=== PATIENT | female | born 1980 | race Caucasian/White ===

== ENCOUNTER → 2024-12-09 | Outpatient (CLI) | payer MEDICAID, SELFPAY ==
--- NOTE | 2024-12-09 14:15 | XR_ITS ---
Examination: Screening digital mammography, bilateral Computer aided detection 3-D breast Tomosynthesis, bilateral Date and time of exam: December 09, 2024 1434 hours Indication: Screening Technique: Nonmagnified MLO, CC views of the breasts to been obtained, reconstructed from 3-D Tomosynthesis images. R2 computer aided detection program utilized for evaluation of suspicious masses and/or abnormal calcifications. 3-D Tomosynthesis images obtained. Findings: The breasts are heterogeneously dense, which may obscure small masses 11 mm focal asymmetry 12:00 position right breast mid depth Grouped microcalcifications 6:00 position right breast Impression: BI-RADS Category 0: Incomplete: Need additional imaging evaluation 11 mm focal asymmetry 12:00 position right breast, recommend follow-up spot tomographic views of this asymmetry Recommend magnification spot compression films of microcalcifications 6:00 position right breast Recommend bilateral breast sonography to complete the workup
== END | disposition home or self-care (01) ==
LOC: CDIM 14:21
PROVIDERS: Referring Provider Physician Assistant; Visit Provider Physician Assistant
DX: Z12.31 Encounter for screening mammogram for malignant neoplasm of breast (principal); N64.89 Other specified disorders of breast; R92.0 Mammographic microcalcification found on diagnostic imaging of breast
CPT/HCPCS: 77063; 77067

== ENCOUNTER → 2025-07-08 | Outpatient (CLI) | payer MEDICAID, SELFPAY ==
--- NOTE | 2025-07-08 13:30 | XR_ITS ---
Examination: Breast ultrasound complete, bilateral Date and time of exam: July 08, 2025, 1402 hours INDICATIONS: Mammogram December 10, 1999 2511 mm focal asymmetry 12 o'clock position right breast mid depth, grouped microcalcifications 6 o'clock position right breast. Technique: Real-time grayscale ultrasonographic imaging bilateral breasts, including all 4 quadrants as well as nipple retroareolar and axillary regions. Findings: Sonographic images right breast 6:00 cyst 5 x 7 mm 11:00 cyst 4 x 3 mm No solid nodules Sonographic images left breast No cystic or solid masses Bilateral dilated ducts in the retroareolar regions IMPRESSION: BI-RADS Category 2: Benign findings
--- NOTE | 2025-07-08 14:30 | XR_ITS ---
Examination: Diagnostic digital mammography, unilateral, right Computer aided detection 3-D breast Tomosynthesis, unilateral Date and time of exam: July 08, 2025, 1418 hours INDICATIONS: Mammogram December 09, 2024 11 mm focal asymmetry 12 o'clock position right breast, grouped microcalcifications 6 o'clock position right breast Technique: Nonmagnified MLO, CC views of the right breast have been obtained, reconstructed from 3-D Tomosynthesis images. R2 computer aided detection program utilized for evaluation of suspicious masses and/or abnormal calcifications. 3-D Tomosynthesis images obtained. Findings: The breast is heterogeneously dense, which may obscure small masses Suspicious grouped microcalcifications 6 o'clock position right breast are confirmed No suspicious nodule is noted on the spot compression views Impression: BI-RADS category 4: Suspicious for malignancy Suspicious microcalcifications are confirmed 6 o'clock position right breast, biopsy is needed to exclude breast carcinoma, these calcifications are amenable to stereotactic breast biopsy for diagnosis
== END | disposition home or self-care (01) ==
PROVIDERS: PCP Physician Assistant; Referring Provider Physician Assistant; Visit Provider Physician Assistant
DX: R92.341 Mammographic extreme density, right breast (principal); R92.0 Mammographic microcalcification found on diagnostic imaging of breast
CPT/HCPCS: 76641; 77061; 77065; G0279